=== PATIENT | female | born 1955 | race Caucasian/White ===

== ENCOUNTER → 2017-04-12 | Outpatient (CLI) | payer OTHER, MEDICARE ==
[2017-04-12 07:01] LABS: ALBUMIN 3.7 GM/DL (3.2-5.2); ALBUMIN/GLOBULIN RATIO 1.19 (1.00-1.93); ALKALINE PHOSPHATASE 56 U/L (45-117); ALT/SGPT 23 U/L (12-78); ANION GAP 10 MEQ/L (8-16); AST/SGOT 10 U/L (15-37); BILIRUBIN,TOTAL 0.6 MG/DL (0.2-1.0); BLOOD UREA NITROGEN 13 MG/DL (7-18); CALCIUM LEVEL 8.6 MG/DL (8.5-10.1); CARBON DIOXIDE LEVEL 28 MEQ/L (21-32); CHLORIDE LEVEL 96 MEQ/L (98-107); CHOLESTEROL LEVEL 169 MG/DL (<200); CREATININE FOR GFR 0.78 MG/DL (0.55-1.02); GLOMERULAR FILTRATION RATE > 60.0 (>51); GLUCOSE, FASTING 122 MG/DL (70-105); SODIUM LEVEL 134 MEQ/L (136-145); TOTAL PROTEIN 6.8 GM/DL (6.4-8.2); TRIGLYCERIDES LEVEL 80 MG/DL (<150)
== END ==
LOC: M LAB 06:06
PROVIDERS: ATTEND Nurse Practitioner Family
DX: E78.2 Mixed hyperlipidemia (principal)

== ENCOUNTER → 2017-06-09 | Outpatient (CLI) | payer OTHER, MEDICARE ==
--- NOTE | 2017-06-09 11:48 | REPMRS ---
Patient History The patient states she had a clinical breast exam in 06/06 Patient is postmenopausal. Family history of colorectal cancer in father at age 50 or over, colorectal cancer in mother at age 89, and prostate cancer in brother under age 50. Digital Woman Screen Mammo: June 09, 2017 - Exam #: [id number] Bilateral CC and MLO view(s) were taken. Technologist: Marquita Sandoval, Technologist Prior study comparison: May 19, 2016, digital woman screen mammo performed at [facility]. May 15, 2015, digital woman screen mammo performed at [facility]. May 02, 2014, digital woman screen mammo performed at [facility]. FINDINGS: The breast tissue is almost entirely fat. There has been no change in the appearance of the mammogram from the prior studies. There is no interval development of dominant mass, architectural distortion, or clustered microcalcification typical of malignancy. ASSESSMENT: BI-RADS/ACR category 1 mammogram. Negative. Recommendation Routine screening mammogram of both breasts in 1 year (for women over age 40). This mammogram was interpreted with the aid of an FDA-approved computer-aided dectection system. Electronically Signed By: Shaun Hood MD 06/09/17 1403
== END ==
LOC: M WHC 10:16
PROVIDERS: ATTEND Nurse Practitioner Women's Health
DX: Z12.31 Encounter for screening mammogram for malignant neoplasm of breast (principal); Z78.0 Asymptomatic menopausal state; Z80.0 Family history of malignant neoplasm of digestive organs; Z12.4 Encounter for screening for malignant neoplasm of cervix; R87.810 Cervical high risk human papillomavirus (HPV) DNA test positive
CPT/HCPCS: G0123; G0202; G0463

== ENCOUNTER → 2017-06-09 | Outpatient (REF) | payer OTHER, MEDICARE | LOC: M SFHCWAGY 10:49 | PROVIDERS: ATTEND Nurse Practitioner Women's Health | DX: Z12.4 Encounter for screening for malignant neoplasm of cervix (principal) ==

== ENCOUNTER → 2017-10-18 | Outpatient (CLI) | payer OTHER, MEDICARE ==
[2017-10-18 09:34] LABS: ANION GAP 9 MEQ/L (8-16); BLOOD UREA NITROGEN 14 MG/DL (7-18); CALCIUM LEVEL 9.1 MG/DL (8.5-10.1); CARBON DIOXIDE LEVEL 28 MEQ/L (21-32); CHLORIDE LEVEL 100 MEQ/L (98-107); CREATININE FOR GFR 0.79 MG/DL (0.55-1.02); GLOMERULAR FILTRATION RATE > 60.0 (>51); GLUCOSE, FASTING 92 MG/DL (70-105); MAGNESIUM LEVEL 2.3 MG/DL (1.8-2.4); POTASSIUM SERUM 4.4 MEQ/L (3.5-5.1); SODIUM LEVEL 137 MEQ/L (136-145)
== END ==
LOC: M LAB 08:19
PROVIDERS: ATTEND Nurse Practitioner Family
DX: R60.0 Localized edema (principal)

== ENCOUNTER → 2018-05-15 | Outpatient (CLI) | payer OTHER, MEDICARE ==
[2018-05-15 08:47] LABS: ALBUMIN 3.7 GM/DL (3.2-5.2); ALBUMIN/GLOBULIN RATIO 1.28 (1.00-1.93); ALKALINE PHOSPHATASE 48 U/L (45-117); ALT/SGPT 23 U/L (12-78); ANION GAP 9 MEQ/L (8-16); AST/SGOT 11 U/L (7-37); BILIRUBIN,TOTAL 0.5 MG/DL (0.2-1.0); BLOOD UREA NITROGEN 11 MG/DL (7-18); CALCIUM LEVEL 8.2 MG/DL (8.8-10.2); CARBON DIOXIDE LEVEL 27 MEQ/L (21-32); CHLORIDE LEVEL 104 MEQ/L (98-107); CHOLESTEROL LEVEL 201 MG/DL (<200); CHOLESTEROL RISK RATIO 2.364 (<5); CREATININE FOR GFR 0.79 MG/DL (0.55-1.30); GLOMERULAR FILTRATION RATE > 60.0 (>45); GLUCOSE, FASTING 95 MG/DL (70-100); HDL CHOLESTEROL 85 MG/DL (>40); LDL CHOLESTEROL 98.6 MG/DL (<100); NON-HDL-C 116 MG/DL; POTASSIUM SERUM 4.1 MEQ/L (3.5-5.1); SODIUM LEVEL 140 MEQ/L (136-145); TOTAL PROTEIN 6.6 GM/DL (6.4-8.2); TRIGLYCERIDES LEVEL 87 MG/DL (<150)
[2018-05-15 09:18] LABS: TOTAL 25(OH) VITAMIN D 41.7 NG/ML (30.0-100.0)
== END ==
LOC: M LAB 07:34
DX: E78.2 Mixed hyperlipidemia (principal)
CPT/HCPCS: 80053

== ENCOUNTER → 2018-07-06 | Outpatient (CLI) | payer OTHER, MEDICARE | LOC: M WHC 11:09 | DX: Z12.31 Encounter for screening mammogram for malignant neoplasm of breast (principal); Z12.4 Encounter for screening for malignant neoplasm of cervix; R87.810 Cervical high risk human papillomavirus (HPV) DNA test positive | CPT/HCPCS: G0123 ==

== ENCOUNTER → 2018-07-06 | Outpatient (REF) | payer OTHER, MEDICARE ==
[2018-07-08 14:16] LABS: HPV HYBRID CAPTURE II Positive (Negative)
== END ==
LOC: M SFHCWAGY 11:35
DX: Z12.4 Encounter for screening for malignant neoplasm of cervix (principal); N95.2 Postmenopausal atrophic vaginitis
CPT/HCPCS: 87624

== ENCOUNTER → 2018-12-05 | Outpatient (REF) | payer OTHER, MEDICARE ==
[2018-12-05 12:15] LABS: ALBUMIN 4.1 GM/DL (3.2-5.2); ALT/SGPT 22 U/L (12-78); BILIRUBIN,TOTAL 0.5 MG/DL (0.2-1.0); BLOOD UREA NITROGEN 14 MG/DL (7-18); CALCIUM LEVEL 8.8 MG/DL (8.8-10.2); CARBON DIOXIDE LEVEL 28 MEQ/L (21-32); CHLORIDE LEVEL 100 MEQ/L (98-107); CREATININE FOR GFR 0.78 MG/DL (0.55-1.30); GLOMERULAR FILTRATION RATE > 60.0 (>45); GLUCOSE, FASTING 85 MG/DL (70-100); POTASSIUM SERUM 4.4 MEQ/L (3.5-5.1); SODIUM LEVEL 137 MEQ/L (136-145); TOTAL PROTEIN 7.1 GM/DL (6.4-8.2)
[2018-12-05 14:17] LABS: TOTAL 25(OH) VITAMIN D 57.2 NG/ML (30.0-100.0)
== END ==
LOC: M SFHCPLAZ 08:24
PROVIDERS: ATTEND Nurse Practitioner Family
DX: E78.2 Mixed hyperlipidemia (principal); E55.9 Vitamin D deficiency, unspecified

== ENCOUNTER → 2019-05-31 | Outpatient (CLI) | payer OTHER, MEDICARE ==
[2019-05-31 08:20] LABS: ALBUMIN 3.8 GM/DL (3.2-5.2); ALT/SGPT 19 U/L (12-78); BILIRUBIN,TOTAL 0.6 MG/DL (0.2-1.0); BLOOD UREA NITROGEN 12 MG/DL (7-18); CALCIUM LEVEL 8.7 MG/DL (8.8-10.2); CARBON DIOXIDE LEVEL 30 MEQ/L (21-32); CHLORIDE LEVEL 103 MEQ/L (98-107); CHOLESTEROL LEVEL 189 MG/DL (<200); CHOLESTEROL RISK RATIO 2.392 (<5); GLOMERULAR FILTRATION RATE > 60.0 (>45); GLUCOSE, FASTING 86 MG/DL (70-100); HDL CHOLESTEROL 79 MG/DL (>40); LDL CHOLESTEROL 96 MG/DL (<100); NON-HDL-C 110 MG/DL; POTASSIUM SERUM 4.2 MEQ/L (3.5-5.1); SODIUM LEVEL 138 MEQ/L (136-145); TOTAL PROTEIN 7.1 GM/DL (6.4-8.2); TRIGLYCERIDES LEVEL 71 MG/DL (<150)
== END ==
LOC: M LAB 07:25
PROVIDERS: ATTEND Nurse Practitioner Family
DX: E78.2 Mixed hyperlipidemia (principal)

== ENCOUNTER → 2019-08-14 | Outpatient (REF) | payer OTHER, MEDICARE ==
[2019-08-17 00:08] LABS: HPV HYBRID CAPTURE II Positive (Negative)
== END ==
LOC: M SFHCWAGY 10:05
PROVIDERS: ATTEND Nurse Practitioner Women's Health
DX: Z12.4 Encounter for screening for malignant neoplasm of cervix (principal); R87.810 Cervical high risk human papillomavirus (HPV) DNA test positive

== ENCOUNTER → 2019-08-14 | Outpatient (CLI) | payer OTHER, MEDICARE ==
--- NOTE | 2019-08-14 10:52 | REPMRS ---
Patient History The patient states she had a clinical breast exam in 07/2019. Patient is postmenopausal. Family history of colorectal cancer at age 50 or over in father, prostate cancer under age 50 in brother, colorectal cancer at age 89 in mother. No Hormone Replacement Therapy 3D TOMOSYNTHESIS WAS PERFORMED. The [facility] lifetime risk for breast cancer is 5.8%. Digital Woman Screen Mammo: August 14, 2019 - Exam #: [id number] Bilateral CC and MLO view(s) were taken. Technologist: Jenny Huynh, Technologist Prior study comparison: July 06, 2018, bilateral digital woman screen mammo performed at [facility]. June 09, 2017, digital woman screen mammo performed at [facility]. FINDINGS: There are scattered fibroglandular densities. There has been no change in the appearance of the mammogram from the prior studies. There is a mild amount of residual fibroglandular tissue which is fairly symmetric. There is no interval development of dominant mass, architectural distortion, or clustered microcalcification suggestive of malignancy. Assessment: BI-RADS/ACR category 1 mammogram. Negative Mammogram. Recommendation Routine screening mammogram in 1 year (for women over age 40). This mammogram was interpreted with the aid of an FDA-approved computer-aided dectection system. Electronically Signed By: Shawn Patton MD 08/14/19 [id number]
== END ==
LOC: M WHC 10:03
PROVIDERS: ATTEND Nurse Practitioner Women's Health
DX: Z12.31 Encounter for screening mammogram for malignant neoplasm of breast (principal); Z78.0 Asymptomatic menopausal state; Z80.42 Family history of malignant neoplasm of prostate; Z80.0 Family history of malignant neoplasm of digestive organs; Z12.4 Encounter for screening for malignant neoplasm of cervix; R87.810 Cervical high risk human papillomavirus (HPV) DNA test positive
CPT/HCPCS: 77063; 77067; 87624; G0123

== ENCOUNTER 2019-10-16 11:54 | Outpatient (RCR) | payer OTHER, MEDICARE | END 2019-10-20 | LOC: M PT 11:54 | PROVIDERS: ATTEND Orthopaedic Surgery | DX: Z47.89 Encounter for other orthopedic aftercare (principal) ==

== ENCOUNTER 2019-11-15 09:06 | Outpatient (RCR) | payer OTHER, MEDICARE | END 2019-11-20 | LOC: M PT 09:06 | PROVIDERS: ATTEND Orthopaedic Surgery | DX: M25.552 Pain in left hip (principal); M16.12 Unilateral primary osteoarthritis, left hip; M70.62 Trochanteric bursitis, left hip ==

== ENCOUNTER 2019-12-20 09:42 | Outpatient (RCR) | payer OTHER, MEDICARE | END 2019-12-21 | LOC: M PT 09:42 | PROVIDERS: ATTEND Orthopaedic Surgery | DX: M25.552 Pain in left hip (principal); M16.12 Unilateral primary osteoarthritis, left hip; M70.62 Trochanteric bursitis, left hip ==

== ENCOUNTER 2019-12-25 10:55 | Outpatient (RCR) | payer OTHER, MEDICARE ==
[2020-01-09] MEDS ORDERED: NEUR300C PO (08:43)
[2020-01-09] MEDS ORDERED: FURO20TA2 PO (08:43)
[2020-01-09] MEDS ORDERED: SIMV10TA21 PO (08:43)
== END 2020-01-19 ==
LOC: M PT 10:55
PROVIDERS: ATTEND Orthopaedic Surgery
DX: M70.62 Trochanteric bursitis, left hip (principal)

== ENCOUNTER 2020-01-24 07:35 | Day surgery (SDC) | payer OTHER ==
[~2020-01-24] VITALS: Ht 160 cm; Wt 63.5 kg
[~2020-01-24 07:35] MED LIST: FURO20TA2 PO; NEUR300C PO; SIMV10TA21 PO
[2020-01-24] MEDS ORDERED: propofoL 200 MG/20 ML VIAL As Ordered ONE ×2 (08:56→09:13)
[2020-01-24] MEDS ORDERED: NS 1,000 ML IV ONE (09:00)
[2020-01-24] MEDS ORDERED: LIDOCAINE 2% INJ 100 MG/5 ML SDV (FOR ANES.) As Ordered ONE (09:09)
--- NOTE | 2020-01-24 09:25 | ROOR ---
Patient Name: Melania Ferraro Procedure Date: 01/24/2020 8:54 AM Date of : 1955 Age: 64 Room: [facility] Gender: Female Note Status: Finalized Procedure: Colonoscopy Indications: High risk colon cancer surveillance: Personal history of colonic polyps, Family history of colon cancer in a first-degree relative Providers: Sam BOGGS MD Referring MD: Selena Alonso NP Requesting Provider: Medicines: Monitored Anesthesia Care Complications: No immediate complications. Procedure: Pre-Anesthesia Assessment: - The heart rate, respiratory rate, oxygen saturations, blood pressure, adequacy of pulmonary ventilation, and response to care were monitored throughout the procedure. The Colonoscope was introduced through the anus and advanced to the cecum, identified by appendiceal orifice and ileocecal valve. Findings: The perianal and digital rectal examinations were normal. Three sessile polyps were found in the rectum and recto-sigmoid colon. The polyps were 4 to 5 mm in size. These polyps were removed with a cold snare. Resection and retrieval were complete. Small Internal Hemorrhoids. The exam was otherwise without abnormality on direct and retroflexion views. Impression: - Three 4 to 5 mm polyps in the rectum and at the recto-sigmoid colon, removed with a cold snare. Resected and retrieved. - Small Internal Hemorrhoids. - The examination was otherwise normal on direct and retroflexion views. Recommendation: - Await pathology results. - Telephone endoscopist for pathology results in 2 weeks. - If the pathology report reveals adenomatous tissue, then repeat the colonoscopy for surveillance in 3 years. - If the pathology report indicates hyperplastic polyp, then repeat colonoscopy for screening purposes in 5 years. Sam Boggs MD Sam BOGGS MD 01/24/2020 9:25:28 AM Electronically signed by Sam BOGGS MD Number of Addenda: 0 Note Initiated On: 01/24/2020 8:54 AM Estimated Blood Loss: Estimated blood loss: none.
[2020-01-24 09:55] VITALS: BP 114/66
== END 2020-01-24 09:57 | disposition home or self-care (01) ==
LOC: M OPP 07:35
PROVIDERS: ATTEND Internal Medicine Gastroenterology
DX: Z86.010 Personal history of colon polyps (principal); Z80.0 Family history of malignant neoplasm of digestive organs; K62.1 Rectal polyp; K64.8 Other hemorrhoids; E78.00 Pure hypercholesterolemia, unspecified; E11.9 Type 2 diabetes mellitus without complications; Z88.0 Allergy status to penicillin; Z88.1 Allergy status to other antibiotic agents; Z88.2 Allergy status to sulfonamides; Z88.5 Allergy status to narcotic agent; Z87.891 Personal history of nicotine dependence; Z79.899 Other long term (current) drug therapy

== ENCOUNTER → 2020-08-18 | Outpatient (CLI) | payer OTHER, MEDICARE ==
--- NOTE | 2020-08-18 10:10 | REPMRS ---
Patient History The patient states she had a clinical breast exam in 2019. Family history of colorectal cancer at age 50 or over in father, prostate cancer under age 50 in brother, colorectal cancer at age 89 in mother. No Hormone Replacement Therapy 3D TOMOSYNTHESIS WAS PERFORMED. [facility] VOLNIKUNJA DOROTHY B. Digital Woman Screen Mammo: August 18, 2020 - Exam #: [id number] Bilateral CC and MLO view(s) were taken. Technologist: Sharri Gilman, Technologist Prior study comparison: August 14, 2019, bilateral digital woman screen mammo performed at [facility]. July 06, 2018, bilateral digital woman screen mammo performed at [facility]. FINDINGS: There are scattered fibroglandular densities. There has been no change in the appearance of the mammogram from the prior studies. There is a mild amount of residual fibroglandular tissue which is fairly symmetric. There is no interval development of dominant mass, architectural distortion, or clustered microcalcification suggestive of malignancy. Assessment: BI-RADS/ACR category 1 mammogram. Negative Mammogram. Recommendation Routine screening mammogram in 1 year (for women over age 40). This mammogram was interpreted with the aid of an FDA-approved computer-aided dectection system. Electronically Signed By: Shawn Patton MD 08/18/20 [id number]
== END ==
LOC: M WHC 08:41
PROVIDERS: ATTEND Nurse Practitioner Women's Health
DX: Z12.31 Encounter for screening mammogram for malignant neoplasm of breast (principal); Z12.4 Encounter for screening for malignant neoplasm of cervix; N95.2 Postmenopausal atrophic vaginitis
CPT/HCPCS: 77063; 77067; 87624; G0123

== ENCOUNTER → 2020-08-18 | Outpatient (REF) | payer OTHER, MEDICARE | LOC: M SFHCWAGY 13:01 | PROVIDERS: ATTEND Nurse Practitioner Women's Health | DX: Z12.4 Encounter for screening for malignant neoplasm of cervix (principal); N95.2 Postmenopausal atrophic vaginitis ==

== ENCOUNTER → 2020-10-13 | Outpatient (CLI) | payer SELFPAY | LOC: M LABSMTC 11:28 | PROVIDERS: ATTEND Family Medicine | DX: Z20.828 Contact with and (suspected) exposure to other viral communicable diseases (principal) ==

== ENCOUNTER → 2021-05-29 | Outpatient (CLI) | payer OTHER, MEDICARE ==
[~2021-05-29] MED LIST changes: +ASPI81TA86 PO; +B COCAP4 PO; +CALCTAB49 PO; +CODCAP26 PO; +FISH120016 PO; +GARL500C2 PO; +MELA10CA2 PO; +MULTCAP PO; +PRES10CA2 PO; +RA B2500 PO; +[UNRECOGNIZED DRUG - CODE] PO
[2021-05-29 08:50] LABS: ALBUMIN 3.9 GM/DL (3.2-5.2); ALT/SGPT 23 U/L (12-78); BILIRUBIN,TOTAL 0.4 MG/DL (0.2-1.0); BLOOD UREA NITROGEN 17 MG/DL (7-18); CALCIUM LEVEL 8.9 MG/DL (8.8-10.2); CARBON DIOXIDE LEVEL 28 MEQ/L (21-32); CHLORIDE LEVEL 101 MEQ/L (98-107); CHOLESTEROL LEVEL 196 MG/DL (<200); CHOLESTEROL RISK RATIO 2.578 (<5); CREATININE FOR GFR 0.72 MG/DL (0.55-1.30); GLOMERULAR FILTRATION RATE > 60.0 (>45); GLUCOSE, FASTING 83 MG/DL (70-100); HDL CHOLESTEROL 76 MG/DL (>40); LDL CHOLESTEROL 105 MG/DL (<100); NON-HDL-C 120 MG/DL; POTASSIUM SERUM 4.6 MEQ/L (3.5-5.1); SODIUM LEVEL 136 MEQ/L (136-145); TOTAL PROTEIN 7.1 GM/DL (6.4-8.2); TRIGLYCERIDES LEVEL 74 MG/DL (<150)
== END ==
LOC: M LAB 06:39
PROVIDERS: ATTEND Nurse Practitioner Family
DX: E78.2 Mixed hyperlipidemia (principal)

== ENCOUNTER → 2021-07-16 | Outpatient (CLI) | payer MEDICARE, OTHER ==
[~2021-07-16] MED LIST changes: -ASPI81TA86 PO; -B COCAP4 PO; -CALCTAB49 PO; -CODCAP26 PO; -FISH120016 PO; -GARL500C2 PO; -MELA10CA2 PO; -MULTCAP PO; -PRES10CA2 PO; -RA B2500 PO; -[UNRECOGNIZED DRUG - CODE] PO
--- NOTE | 2021-07-16 14:04 | REP ---
INDICATION: PAIN IN RIGHT LEG COMPARISON: None. TECHNIQUE: AP and lateral views right tibia/fibula FINDINGS: Age-related degenerative changes at the knee and ankle joint. Osseous structures are otherwise intact and normal. Surrounding soft tissues are unremarkable. IMPRESSION: Relatively age-appropriate examination.. No acute fracture or dislocation. <Electronically signed by Brad Trujillo > 07/16/21 1400
== END ==
LOC: M PLAIMG 13:39
PROVIDERS: ATTEND Physician Assistant
DX: M79.604 Pain in right leg (principal)
CPT/HCPCS: 73590; G0463

== ENCOUNTER → 2021-09-03 | Outpatient (REF) | payer OTHER, MEDICARE | LOC: M SFHCWAGY 13:14 | PROVIDERS: ATTEND Nurse Practitioner Women's Health | DX: Z12.4 Encounter for screening for malignant neoplasm of cervix (principal); N88.8 Other specified noninflammatory disorders of cervix uteri | CPT/HCPCS: G0123; G0463 ==

== ENCOUNTER → 2022-01-11 | Outpatient (CLI) | payer OTHER, MEDICARE ==
[~2022-01-11] MED LIST changes: +ASPI81TA86 PO; +B COCAP4 PO; +CALCTAB49 PO; +CODCAP26 PO; +FISH120016 PO; +GARL500C2 PO; +MELA10CA2 PO; +MULTCAP PO; +PRES10CA2 PO; +RA B2500 PO; +[UNRECOGNIZED DRUG - CODE] PO
== END ==
LOC: M WHC 09:24
PROVIDERS: ATTEND Physician Assistant
DX: M85.88 Other specified disorders of bone density and structure, other site (principal); M85.851 Other specified disorders of bone density and structure, right thigh

== ENCOUNTER → 2022-11-08 | Outpatient (CLI) | payer OTHER, MEDICARE ==
[2022-11-08 10:51] LABS: BASO % 0.6 % (0.0-1.0); EOS # 0.1 10^3/uL (0.0-0.5); EOS % 2.3 % (0.0-3.0); HEMOGLOBIN 13.5 g/dl (12.0-15.5); LYMPH # 1.6 10^3/uL (1.5-5.0); LYMPH % 33.8 % (24.0-44.0); MEAN CORPUSCULAR HEMOGLOBIN 30.7 pg (27.0-33.0); MEAN CORPUSCULAR HGB CONC 32.1 g/dl (32.0-36.5); MEAN CORPUSCULAR VOLUME 95.5 fl (80.0-96.0); MONO # 0.6 10^3/uL (0.0-0.8); MONO % 11.4 % (2.0-8.0); NEUTROPHILS # 2.5 10^3/uL (1.5-8.5); NEUTROPHILS % 51.5 % (36.0-66.0); PLATELET COUNT, AUTOMATED 289 10^3/uL (150-450); WHITE BLOOD COUNT 4.8 10^3/uL (4.0-10.0)
[2022-11-08 11:07] LABS: INR 0.93; PROTHROMBIN TIME 12.7 SECONDS (12.5-14.5)
[2022-11-08 11:18] LABS: APPEARANCE, URINE MANUAL CLEAR (CLEAR); COLOR, URINE MANUAL LT YELLOW (YELLOW)
[2022-11-08 11:21] LABS: GLUCOSE, URINE (UA) MANUAL NEGATIVE (NEGATIVE); PH,URINE MAN 8.5 UNITS (5.0 - 7.0); PROTEIN, URINE MANUAL NEGATIVE (NEGATIVE)
[2022-11-08 11:22] LABS: ALBUMIN 3.9 G/DL (3.2-5.2); ALKALINE PHOSPHATASE 57 U/L (46-116); ALT/SGPT 19 U/L (7.0-40); AST/SGOT 19 U/L (<34); BILIRUBIN, URINE MANUAL NEGATIVE (NEGATIVE); BILIRUBIN,TOTAL 0.4 MG/DL (0.3-1.2); BLOOD UREA NITROGEN 16 MG/DL (9-23); BLOOD URINE MANUAL NEGATIVE (NEGATIVE); CALCIUM LEVEL 9.5 MG/DL (8.3-10.6); CARBON DIOXIDE LEVEL 27 MMOL/L (20-31); CHLORIDE LEVEL 100 MMOL/L (98-107); CREATININE FOR GFR 0.66 MG/DL (0.55-1.30); GLOMERULAR FILTRATION RATE > 60.0 (>45); GLUCOSE, FASTING 90 MG/DL (74-106); KETONE, URINE MANUAL NEGATIVE (NEGATIVE); LEUKOCYTE ESTERASE, URINE MAN NEGATIVE (NEGATIVE); NITRITE, URINE MANUAL NEGATIVE (NEGATIVE); POTASSIUM SERUM 4.4 MMOL/L (3.5-5.1); SODIUM LEVEL 138 MMOL/L (136-145); TOTAL PROTEIN 6.7 G/DL (5.7-8.2); UROBILINOGEN, URINE MANUAL NORMAL (NORMAL)
[2022-11-08 11:24] LABS: TOTAL 25(OH) VITAMIN D 40.2 NG/ML (20.0-100.0)
== END ==
LOC: M PLALAB 08:33
PROVIDERS: ATTEND Orthopaedic Surgery
DX: M19.011 Primary osteoarthritis, right shoulder (principal)

== ENCOUNTER → 2023-02-01 | Outpatient (CLI) | payer OTHER, MEDICARE | LOC: M WHC 08:07 | PROVIDERS: ATTEND Physician Assistant | DX: Z12.31 Encounter for screening mammogram for malignant neoplasm of breast (principal) ==

== ENCOUNTER → 2023-02-16 | Outpatient (CLI) | payer OTHER, MEDICARE ==
[2023-02-16 10:42] LABS: BASO % 0.8 % (0.0-1.0); EOS # 0.1 10^3/uL (0.0-0.5); EOS % 2.4 % (0.0-3.0); LYMPH # 2.2 10^3/uL (1.5-5.0); LYMPH % 43.6 % (24.0-44.0); MEAN CORPUSCULAR HGB CONC 32.6 g/dl (32.0-36.5); MEAN CORPUSCULAR VOLUME 95.3 fl (80.0-96.0); MONO # 0.7 10^3/uL (0.0-0.8); MONO % 12.8 % (2.0-8.0); NEUTROPHILS % 40.2 % (36.0-66.0); PLATELET COUNT, AUTOMATED 289 10^3/uL (150-450); RED BLOOD COUNT 4.51 10^6/uL (4.00-5.40); WHITE BLOOD COUNT 5.1 10^3/uL (4.0-10.0)
[2023-02-16 11:31] LABS: ALBUMIN 4.1 G/DL (3.2-5.2); ALKALINE PHOSPHATASE 59 U/L (46-116); ALT/SGPT 20 U/L (7.0-40); AST/SGOT 15 U/L (<34); BILIRUBIN,TOTAL 0.5 MG/DL (0.3-1.2); BLOOD UREA NITROGEN 11 MG/DL (9-23); CALCIUM LEVEL 9.4 MG/DL (8.3-10.6); CARBON DIOXIDE LEVEL 30 MMOL/L (20-31); CHLORIDE LEVEL 101 MMOL/L (98-107); CHOLESTEROL LEVEL 182 MG/DL (<200); CHOLESTEROL RISK RATIO 2.58 (<5); GLOMERULAR FILTRATION RATE > 60.0 (>45); GLUCOSE, FASTING 86 MG/DL (74-106); HDL CHOLESTEROL 70.3 MG/DL (>40); LDL CHOLESTEROL 94.9 MG/DL (<100); NON-HDL-C 111.7 MG/DL; POTASSIUM SERUM 4.8 MMOL/L (3.5-5.1); SODIUM LEVEL 134 MMOL/L (136-145); TOTAL PROTEIN 6.9 G/DL (5.7-8.2); TRIGLYCERIDES LEVEL 84 MG/DL (<150)
[2023-02-16 11:33] LABS: THYROID STIMULATING HORMONE 2.086 uIU/ML (0.55-4.78)
== END ==
LOC: M PLALAB 08:25
PROVIDERS: ATTEND Physician Assistant
DX: E78.2 Mixed hyperlipidemia (principal); R60.0 Localized edema

== ENCOUNTER → 2023-11-18 | Outpatient (CLI) | payer OTHER, MEDICARE ==
[2023-11-18 10:14] LABS: BASO % 0.7 % (0.0-1.0); EOS # 0.1 10^3/uL (0.0-0.5); EOS % 2.7 % (0.0-3.0); HEMATOCRIT 40.2 % (36.0-47.0); HEMOGLOBIN 13.3 g/dl (12.0-15.5); LYMPH # 1.9 10^3/uL (1.5-5.0); LYMPH % 41.6 % (24.0-44.0); MEAN CORPUSCULAR HEMOGLOBIN 31.4 pg (27.0-33.0); MEAN CORPUSCULAR HGB CONC 33.1 g/dl (32.0-36.5); MONO # 0.5 10^3/uL (0.0-0.8); MONO % 10.7 % (2.0-8.0); NEUTROPHILS % 44.1 % (36.0-66.0); PLATELET COUNT, AUTOMATED 251 10^3/uL (150-450); RED BLOOD COUNT 4.23 10^6/uL (4.00-5.40); WHITE BLOOD COUNT 4.5 10^3/uL (4.0-10.0)
[2023-11-18 10:28] LABS: INR 1.03; PROTHROMBIN TIME 13.2 SECONDS (12.5-14.5)
[2023-11-18 10:29] LABS: PARTIAL THROMBOPLASTIN TIME 26.9 SECONDS (24.8-34.2)
[2023-11-18 10:41] LABS: ALBUMIN 3.7 G/DL (3.2-5.2); ALKALINE PHOSPHATASE 47 U/L (46-116); ALT/SGPT 19 U/L (7.0-40); AST/SGOT 14 U/L (<34); BILIRUBIN,TOTAL 0.5 MG/DL (0.3-1.2); BLOOD UREA NITROGEN 11 MG/DL (9-23); CALCIUM LEVEL 8.9 MG/DL (8.3-10.6); CARBON DIOXIDE LEVEL 30 MMOL/L (20-31); CHLORIDE LEVEL 101 MMOL/L (98-107); CREATININE FOR GFR 0.59 MG/DL (0.55-1.30); GLOMERULAR FILTRATION RATE > 60.0 (>45); GLUCOSE, FASTING 64 MG/DL (74-106); POTASSIUM SERUM 4.2 MMOL/L (3.5-5.1); SODIUM LEVEL 136 MMOL/L (136-145); TOTAL PROTEIN 6.5 G/DL (5.7-8.2)
[2023-11-18 10:45] LABS: TOTAL 25(OH) VITAMIN D 47.7 NG/ML (20.0-100.0); VITAMIN B12 LEVEL 665 PG/ML (211-911)
== END ==
LOC: M PLALAB 08:33
PROVIDERS: ATTEND Physician Assistant
DX: E55.9 Vitamin D deficiency, unspecified (principal); R23.3 Spontaneous ecchymoses; R58 Hemorrhage, not elsewhere classified

== ENCOUNTER → 2023-12-21 | Outpatient (CLI) | payer OTHER, MEDICARE ==
[2023-12-21 10:58] LABS: COLLAGEN EPINEPHRINE 174 SECONDS (74-162)
[2023-12-21 11:10] LABS: FREE T4 1.19 NG/DL (0.89-1.76)
[2023-12-21 11:11] LABS: THYROID STIMULATING HORMONE 1.296 uIU/ML (0.55-4.78)
[2023-12-21 11:23] LABS: COLLAGEN ADP 86 SECONDS (56-103)
[2023-12-23 08:15] LABS: F8 ACTIVITY FOR F8 PANEL 69 % (56-140); F8 ACTIVITY vWB FOR F8 PANEL 91 % (50-200); F8 ANTIGEN FOR F8 PANEL 107 % (50-200)
== END ==
LOC: M PLALAB 09:30
PROVIDERS: ATTEND Physician Assistant
DX: R23.3 Spontaneous ecchymoses (principal)

== ENCOUNTER → 2024-03-28 | Outpatient (CLI) | payer OTHER, MEDICARE ==
[~2024-03-28] MED LIST changes: -GARL500C2 PO; +GARL500C6 PO
== END ==
LOC: M WHC 07:33
PROVIDERS: ATTEND Nurse Practitioner Family
DX: Z12.31 Encounter for screening mammogram for malignant neoplasm of breast (principal); Z53.9 Procedure and treatment not carried out, unspecified reason

== ENCOUNTER → 2024-04-04 | Outpatient (CLI) | payer OTHER, MEDICARE | LOC: M WHC 08:03 | PROVIDERS: ATTEND Nurse Practitioner Family | DX: Z12.31 Encounter for screening mammogram for malignant neoplasm of breast (principal) ==

== ENCOUNTER → 2024-12-26 | Outpatient (CLI) | payer MEDICARE ==
[2024-12-26 12:49] LABS: BLOOD UREA NITROGEN 17 MG/DL (9-23); CALCIUM LEVEL 8.8 MG/DL (8.3-10.6); CARBON DIOXIDE LEVEL 28 MMOL/L (20-31); CHLORIDE LEVEL 101 MMOL/L (98-107); CHOLESTEROL LEVEL 184 MG/DL (<200); CHOLESTEROL RISK RATIO 2.74 (<5); CREATININE FOR GFR 0.62 MG/DL (0.55-1.30); GLOMERULAR FILTRATION RATE > 60.0 (>45); GLUCOSE, FASTING 82 MG/DL (74-106); LDL CHOLESTEROL 99.2 MG/DL (<100); MAGNESIUM LEVEL 2.1 MG/DL (1.8-2.4); POTASSIUM SERUM 4.1 MMOL/L (3.5-5.1); SODIUM LEVEL 135 MMOL/L (136-145); TRIGLYCERIDES LEVEL 89 MG/DL (<150)
== END ==
LOC: M PLALAB 07:32
PROVIDERS: ATTEND Student in an Organized Health Care Education/Training Program
DX: E78.2 Mixed hyperlipidemia (principal); R60.0 Localized edema

== ENCOUNTER → 2025-01-23 | Outpatient (CLI) | payer MEDICARE, MEDICAID | LOC: M RAD 12:23 | PROVIDERS: ATTEND Student in an Organized Health Care Education/Training Program | DX: M79.641 Pain in right hand (principal) ==

== ENCOUNTER 2025-07-18 07:55 | Day surgery (SDC) | payer MEDICAID, MEDICARE ==
[~2025-07-18] VITALS: Ht 160 cm; Wt 63.8 kg
[~2025-07-18 07:55] MED LIST changes: +CVS10CAP8 PO; -MELA10CA2 PO
[2025-07-18 09:47] VITALS: BP 133/82; TEMP 97.2; O2SAT 98
== END 2025-07-18 10:01 | disposition home or self-care (01) ==
LOC: M OPP 07:55
PROVIDERS: ATTEND Internal Medicine Gastroenterology
DX: K63.5 Polyp of colon (principal); Q43.8 Other specified congenital malformations of intestine; K64.8 Other hemorrhoids; Z86.0100 Personal history of colon polyps, unspecified; Z80.0 Family history of malignant neoplasm of digestive organs; Z88.0 Allergy status to penicillin; Z88.1 Allergy status to other antibiotic agents; Z88.2 Allergy status to sulfonamides; Z88.5 Allergy status to narcotic agent; Z88.8 Allergy status to other drugs, medicaments and biological substances; Z79.899 Other long term (current) drug therapy

== ENCOUNTER → 2025-08-07 | Outpatient (CLI) | payer MEDICAID, MEDICARE | LOC: M RAD 08:34 | PROVIDERS: ATTEND Physician Assistant Medical | DX: R10.13 Epigastric pain (principal) ==